=== PATIENT | female | born 1940 | race Caucasian/White ===

== ENCOUNTER 2017-06-27 17:41 | Inpatient (IN) | payer OTHER ==
--- NOTE | 2017-06-27 18:32 | EDPHY ---
H & P Time Seen by Provider: 06/27/17 18:30 HPI/ROS: Chief complaint. Shortness of breath HPI. 76-year-old female with breathing difficulties over the past 1/2 years. She was diagnosed with interstitial lung disease as she had been a former smoker and received radiation for breast cancer. She had been on prednisone. She stopped her prednisone 2 months ago. 3 weeks ago the patient started to experience exertional dyspnea. She has a home pulse oximeter and she has been getting readings as low as 70 after climbing stairs. She has a dry cough but no fever. No chest pain no unusual leg pain or swelling. ROS Constitutional. no fever/chills, no weakness Eyes. no problems with vision ENT. no sore throat, no nasal drainage Cardiovascular. no chest pain Respiratory. Shortness of breath and dry cough Abdominal. no abdominal pain, no nausea/vomiting, no diarrhea . no problems urinating MS. no calf pain/swelling, no neck/back pain, no joint pain Skin. no rash Lymph. no swollen glands Neuro. no headache, no dizziness, no difficulty walking or with speech Past Medical/Surgical History: Breast cancer, lumpectomy, interstitial lung disease Social History: , nonsmoker, no alcohol Smoking Status: Never smoked Physical Exam: General Appearance: Alert well-developed female moderate distress vital signs show temp 37.0 degrees and oxygen saturation on room air 82% Eyes: Pupils equal and round no pallor or injection. ENT, Mouth: Mucous membranes are moist. Respiratory: No retractions. Decreased breath sounds bilaterally Cardiovascular: Regular rate and rhythm. Gastrointestinal: Abdomen is soft and nontender, no masses, bowel sounds normal. Neurological: Awake and alert, sensory and motor exams grossly normal. Skin: Warm and dry, no rashes. Musculoskeletal: Neck is supple nontender. Extremities symmetrical, full range of motion. Psychiatric: Patient is oriented X 3, there is no agitation. Constitutional: Initial Vital Signs Temperature (C) 37.0 C 06/27/17 17:47 Heart Rate 89 06/27/17 17:47 Respiratory Rate 18 18 17:47 Blood Pressure 125/81 H 18 17:47 O2 Sat (%) 82 L 18 17:47 O2 Delivery Mode Room Air O2 (L/minute) 1 Allergies/Adverse Reactions: No Known Allergies Allergy (Verified 06/27/17 17:47) Home Medications: Medication Instructions Recorded NK [No Known Home Meds] 06/27/17 Medical Decision Making - Diagnostics EKG Interpretation: EKG interpreted by me shows normal sinus rhythm normal interval and axis. QRS is normal there is no significant ST elevation or depression. There is no arrhythmia. The rate is 80 Imaging Results: Imaging Impressions Chest X-Ray 06/27/17 18:53 Impression: 1. Diffuse interstitial opacities may represent interstitial pulmonary edema. An atypical pneumonia could have a similar appearance as well. 2. Multiple age-indeterminate mid thoracic compression fractures. Chest x-ray interpreted by me showing bilateral infiltrates that would be consistent with CHF CT angio chest shows no evidence of pulmonary embolus. There is some patchy ground-glass appearance but mainly it appears to be interstitial lung disease. Discussed with Dr. Marquez and reviewed by me. Procedures: IV normal saline, monitor, oxygen 1 L oxygen brings or up to about 97% saturation ED Course/Re-evaluation: On serial evaluations patient is stable . She is stable with supplemental oxygen. She and I discussed imaging and lab results. We discussed treatment plan including recommendation for admission. She expresses understanding And agreement She has [place] so [place] will be notified Patient's D-dimer is elevated. And CT angio chest is ordered. Indication are hypoxia and elevated D-dimer with abnormal chest x-ray I consulted and discussed case with [place] patient's regular physician and they are fine with admitting her here. Consulted and discussed the case with Dr. Couch, hospitalist, who agrees to the admission Differential Diagnosis: I considered acute coronary syndrome, PE, pneumonia, congestive heart failure. It appears that patient has interstitial lung disease and probably has had an exacerbation as she has been off prednisone for the past 2 months. - Data Points Laboratory Results: Laboratory Results 06/27/17 19:15 06/27/17 19:15 06/27/17 06/27/17 06/27/17 19:15 19:15 19:15 WBC 3.71 10^3/uL L 10^3/uL (3.80-9.50) RBC 3.63 10^6/uL L 10^6/uL (4.18-5.33) Hgb 10.5 g/dL L g/dL (12.6-16.3) Hct 32.4 % L % (38.0-47.0) MCV 89.3 fL fL (81.5-99.8) MCH 28.9 pg pg (27.9-34.1) MCHC 32.4 g/dL g/dL (32.4-36.7) RDW 15.1 % % (11.5-15.2) Plt Count 83 10^3/uL L 10^3/uL (150-400) MPV 10.1 fL fL (8.7-11.7) Neut % (Auto) 40.7 % % (39.3-74.2) Lymph % (Auto) 43.7 % % (15.0-45.0) Cobb % (Auto) 12.9 % % (4.5-13.0) Eos % (Auto) 1.9 % % (0.6-7.6) Baso % (Auto) 0.3 % % (0.3-1.7) Nucleat RBC Rel Count 0.0 % % (0.0-0.2) Absolute Neuts (auto) 1.51 10^3/uL L 10^3/uL (1.70-6.50) Absolute Lymphs (auto) 1.62 10^3/uL 10^3/uL (1.00-3.00) Absolute Monos (auto) 0.48 10^3/uL 10^3/uL (0.30-0.80) Absolute Eos (auto) 0.07 10^3/uL 10^3/uL (0.03-0.40) Absolute Basos (auto) 0.01 10^3/uL L 10^3/uL (0.02-0.10) Absolute Nucleated RBC 0.00 10^3/uL 10^3/uL (0-0.01) Immature Gran % 0.5 % % (0.0-1.1) Immature Gran # 0.02 10^3/uL 10^3/uL (0.00-0.10) D-Dimer 2.14 ug/mLFEU H ug/mLFEU (0.00-0.50) Sodium 139 mEq/L mEq/L (135-145) Potassium 3.8 mEq/L mEq/L (3.5-5.2) Chloride 103 mEq/L mEq/L (97-110) Carbon Dioxide 24 mEq/l mEq/l (22-31) Anion Gap 12 mEq/L mEq/L (8-16) BUN 23 mg/dL mg/dL (7-23) Creatinine 0.9 mg/dL mg/dL (0.6-1.0) Estimated GFR > 60 Glucose 104 mg/dL H mg/dL (70-100) Calcium 9.1 mg/dL mg/dL (8.5-10.4) Troponin I < 0.012 ng/mL ng/mL (0.000-0.034) NT-Pro-B Natriuret Pep 340 pg/mL pg/mL (0-450) Departure - Departure Disposition: Home, Routine, Self-Care Clinical Impression: Interstitial lung disease, Hypoxia Condition: Fair Referrals: JESSICA MASTERS [Primary Care Provider] - As per Instructions
--- NOTE | 2017-06-27 19:23 | CPEKG ---
Heart Rate: 85 RR Interval: 706 P-R Interval: 164 QRSD Interval: 68 QT Interval: 372 QTC Interval: 443 P Union: 46 QRS Union: 26 T Wave Union: -8 EKG Severity - ABNORMAL ECG - EKG Impression: SINUS RHYTHM EKG Impression: LOW VOLTAGE THROUGHOUT EKG Impression: NONSPECIFIC T ABNORMALITIES, ANTERIOR LEADS Electronically Signed By: Yaron Pena 27-Jun-2017 20:48:26
[2017-06-27 19:24] LABS: PLATELET COUNT 83 10^3/uL (150-400)
[2017-06-27] MEDS ORDERED: IOPAMIDOL (ISOVUE 370) 100 ML BTL IV ONE (19:53)
[2017-06-27] MEDS ORDERED: diphenhydrAMINE 25 MG CAP PO PRN (22:30)
[2017-06-27] MEDS ORDERED: ACETAMINOPHEN 325 MG TAB PO PRN (22:30)
[2017-06-27] MEDS ORDERED: NS 1,000 ML IV SCH (22:30)
[2017-06-27] MEDS ORDERED: ALBUTEROL 3 ML DEYVIAL IH PRN (22:30)
[2017-06-27] MEDS ORDERED: ONDANSETRON 4 MG/2 ML VIAL IVP PRN (22:30)
[2017-06-27] MEDS ORDERED: HYDROCODONE/APAP 5/325 TAB PO PRN (22:30)
[2017-06-27 23:55] VITALS: RESP 16
[2017-06-28 06:38] LABS: PLATELET COUNT 76 10^3/uL (150-400)
--- NOTE | 2017-06-28 08:42 | GHP ---
[f rep st] HISTORY AND PHYSICAL DATE OF ADMISSION: 06/27/2017 SOURCE: Patient provides history, appears reliable. CHIEF COMPLAINT: Dyspnea. HISTORY OF PRESENT ILLNESS: This is a pleasant 76-year-old female with past medical history signific ant for interstitial lung disease developed in the last 6 months, breast cancer with history of XRT, who presents to the emergency department today with complaints of worsening shortness of breath since earlier on the date of admission. The patient reports recent diagnosis of ILD in the past 6 months. Patient had been on a prolonged taper that was stopped 2 months ago. Since that time, she was doin g quite well. In the last 3 weeks, patient has noted some dyspnea on exertion. She does measure her oxygen and it was noted to be 70% with exertion on the stairs. The patient also notes that she has had a dry cough recently without any fever. REVIEW OF SYSTEMS: Negative, except as noted above. ALLERGIES: No known drug allergies. HOME MEDICATIONS: None. PAST MEDICAL HISTORY: Significant for interstitial lung disease, breast cancer with history of lumpe ctomy and radiation. PAST SURGICAL HISTORY: Significant for lumpectomy, bilateral cataract extraction with lens reflex. FAMILY HISTORY: Patient denies any breast cancer or lung disease. SOCIAL HISTORY: Patient is . She lives with her . She does not smoke, drink, or do d rugs with the exception for rare marijuana. CODE STATUS: Full. PHYSICAL EXAMINATION: VITAL SIGNS: Upon arrival to the emergency department, blood pressure 125/81, heart rate 89, respiratory rate 18, O2 sat 82% on room air, with a temperature of 37.0. Vitals curr ently: Blood pressure 112/62, heart rate is 75, respiratory rate 16, O2 sat 95% on room air with tem perature 36.4 at rest. GENERAL: No acute distress. Pleasant adult female who is resting quietly in bed. She does appear fatigued but nontoxic. HEAD: Normocephalic, atraumatic. EYES: Extraocular muscles are grossly intact. Pupils are equal, round, symmetric to light bilaterally. She does have lens reflex appreciated. SKIN: No evidence of rashes or sores on exposed extremities. ENT: Mucous membranes appear moist. No oropharyngeal erythema or exudates. Dentition intact. No nasal dischar ge. NECK: Supple. Trachea midline. CV: Regular rate and rhythm. No murmurs, rubs, or gallops. RESPIRATORY: Lungs slightly coarse diffusely. No wheezes or rales appreciated. No increased work o f breathing. ABDOMEN: Positive bowel sounds. Soft, nontender to palpation. No rebound, guarding, or masses appreciated. EXTREMITIES: No cyanosis, clubbing, or edema. 2+ pedal pulses. NEURO: Emily ssly nonfocal. No facial drooping. Moving all extremities. Sits up independently. PSYCH: Thought process, content, questions appropriate. Patient is pleasant and cooperative. LABORATORY STUDIES: On arrival WBC was 3.75, H and H 10.5, 32.4, MCV 89.3, platelet count is 83, burke trophil percent 40.7. D-dimer is 2.14. Sodium 139, potassium 3.8, chloride is 103, CO2 24, anion ga p 12, BUN 23, creatinine greater than 60, glucose 104, calcium 9.1. Troponin is negative. BNP is 34 0. Respiratory panel is pending. Chest x-ray image report reviewed, showing diffuse interstitial op acities, may represent interstitial pulmonary edema. Atypical pneumonia. Multiple age-indeterminate mid-thoracic compression fractures. CT angio chest negative for PE. Scattered interstitial ground-glass opacities consistent with inters titial lung disease. Consider high-resolution CT to better characterize. Cardiomegaly. Multiple ag e-indeterminate compression fractures located at T7, T9 most severely, and also T8, T12 and L1. Normal sinus rhythm in the 80s, decreased voltage in multiple leads. Non-pathologic Q-waves lead III . QTc 443. T-wave inversion V1, V2, V3, flattening in V4, nonspecific. ASSESSMENT AND PLAN: This is a pleasant 76-year-old female, who presents with complaints of worsenin g dyspnea. She has had a 6-month history/diagnosis of interstitial lung disease. 1. Interstitial lung disease. Patient currently saturating well on 1 L supplemental oxygen. She do es not have this at home. At rest on room air, patient desats down to the 70s. She did not require any steroids or nebulizer treatment. We will make this available p.r.n., but hold off on steroids at this time. She has diffusely diminished breath sounds. Chest x-ray consistent with her interstitia l lung disease. She is afebrile. 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 We will complete an exertional pulse ox on room air and order home oxygen. Patient sees Dr. Janet Costa, pulmonology with [facility]. She is scheduled for an appointment this afternoon. 2. Hypoxia related to #1. Oxygen as noted above. 3. Pancytopenia. Appears to be some chronicity. Defer outpatient evaluation. Hold off on anticoag ulation secondary to thrombocytopenia. 4. Hypotension. Patient with some nonsustained low normal blood pressures in the ED before arrival to the floor. We will give her some supplemental IV fluid overnight and monitor. 5. Vertebral fractures. Patient without any current complaint of back pain. It is unclear how long patient has had these based on imaging. Supportive care. Medications available p.r.n. but patient currently without any complaints. 6. History of breast cancer, in remission. 7. Fluid, electrolyte, nutrition, IV fluids as noted above. Electrolytes will be monitored. Replac e if needed. Diet as tolerated. 8. Prophylaxis: Sequential compression devices only, holding anticoagulation for her anticipated sh ort hospital stay, and also thrombocytopenia. 9. Code status is full. DISPOSITION: Patient admitted to inpatient status on the medical floor, given the increasing oxygen. With history of interstitial lung disease. Anticipated greater than 2-midnight stay. We will need to monitor and have patient complete exertional room air challenge and see how she does this morning . The patient does note she has an appointment with her physiotherapy practice manager at [facility], Dr. Costa, and tasia licona hoping to discharge for followup. /[id number]/MODL
--- NOTE | 2017-06-28 09:35 | PDMN ---
Medical Necessity Medical necessity: GRG pulm disease: interstitial lung disease O2 70's to low 80's., SOB, hypoxia, pancytopenia, hyotension, hx of Br Ca in remission, cont to monitor > 2 midnights anticipated
--- NOTE | 2017-06-28 10:03 | ASMTCASEMG ---
Living Arrangements What is your living Answers: With Partner arrangement? Who do you live with? Type Of Residence What kind of residence do Answers: House you live in? Discharge Plan Comments Coordination Status Comments Notes: Patient is a 76yo female who was admitted for interstitial lung disease, hypoxia, pancytopenia,hypotension, vertebral fractures. Cardiac rehab ordered, no other therapies have been ordered. Patient lives with her life partner in her own home. D/C needs TBD. CM will follow. Date Signed: 06/28/2017 10:02 AM Electronically Signed By:Moon Fung LCSW
[2017-06-28 11:13] VITALS: BP 106/60; PULSE 72; TEMP 98.1; O2SAT 92
[2017-06-28] MEDS ORDERED: ACETAMINOPHEN 325 MG TAB PO PRN (12:23)
--- NOTE | 2017-06-28 21:05 | GDS ---
[f rep st] DISCHARGE SUMMARY DISCHARGE DIAGNOSES: 1. Interstitial lung disease. 2. Acute hypoxemic respiratory failure. 3. Pancytopenia. 4. Hypotension. STUDIES AND PROCEDURES DONE: CT angio of the chest. PHYSICAL EXAM: GENERAL: The patient is alert. VITAL SIGNS: Afebrile at 36.7, pulse is 72, respira tory rate 16, blood pressure is 106/60. She is saturating 92% on room air. I have seen and evaluate d the patient on the day of discharge. HOSPITAL COURSE: The patient is a 76-year-old female who presented to the emergency room with compla ints of dyspnea. She was evaluated and diagnosed with acute hypoxemic respiratory failure in the set ting of interstitial lung disease. During this hospitalization, she was provided supportive manageme nt. Her acute hypoxemic respiratory failure has resolved. She is no longer requiring supplemental o xygen. She is feeling significantly better and would like to be discharged home. The patient will f ollow up in the outpatient setting for her pancytopenia, as well as treatment for her interstitial kerrie ng disease. There are no pending studies. DISCHARGE MEDICATIONS: Please refer to EMR form. I have not adjusted the patient's previously presc ribed home medications to the best of my knowledge. FOLLOW-UP: Will be with her primary care physician, Dr. Yaron Zaragoza. /[id number]/MODL
[2017-06-29] MEDS ORDERED: Herbals/Supplements -Info Only PO SCH (09:00)
[2017-06-29] MEDS ORDERED: CHOLECALCIFEROL VIT D3 1,000 UNITS TAB PO SCH (09:00)
[2017-06-29] MEDS ORDERED: MULTIVITAMINS 1 EACH TAB PO SCH (09:00)
== END 2017-06-28 12:35 | disposition home or self-care (01) | DRG 196 ==
LOC: F3E 21:55
PROVIDERS: ADMIT Internal Medicine; ATTEND Internal Medicine
DX: J84.9 Interstitial pulmonary disease, unspecified (principal); J96.01 Acute respiratory failure with hypoxia; D61.818 Other pancytopenia; Z87.891 Personal history of nicotine dependence; Z85.3 Personal history of malignant neoplasm of breast
CPT/HCPCS: Q9967